=== PATIENT | male | born 1960 | race Caucasian/White ===

== ENCOUNTER 2020-08-06 14:35 | Inpatient (IN) | payer MEDICARE ==
[~2020-08-06] VITALS: Ht 175.3 cm; Wt 71.2 kg
[~2020-08-06 14:35] MED LIST: NEURONTIN300 MG PO; NORCO 5-325 TA1 EACH PO; NORVASC 5 MG TAB5 MG PO; SYNTHROID25 MCG PO; TORADOL 10 MG T10 MG PO
[2020-08-06 16:34] LABS: BUN/CREATININE RATIO 12 (0-10)
[2020-08-06 16:57] LABS: HEMOGLOBIN 14.7 gm/dl (14.0-17.5); RED BLOOD COUNT 4.75 M/UL (4.20-5.50); WHITE BLOOD COUNT 7.9 K/UL (4.5-11.0)
[2020-08-06] MEDS ORDERED: BENADRYL25 MG PO (18:08)
[2020-08-07 04:56] LABS: HEMOGLOBIN 14.8 gm/dl (14.0-17.5); RED BLOOD COUNT 4.6 M/UL (4.20-5.50); WHITE BLOOD COUNT 6.8 K/UL (4.5-11.0)
[2020-08-07 05:13] LABS: BUN/CREATININE RATIO 12 (0-10)
[2020-08-07] MEDS ORDERED: LOPRESSOR 25 MG25 MG PO (11:31)
--- NOTE | 2020-08-07 17:26 | NUR ---
SPOKE WITH IRMA KELLEY NP ABOUT PATIENT'S HEART CATH. HE VERBALIZED THAT IT IS TO TAKE PLACE TOMORROW AT APPROXIMATELY 10 AM.
[2020-08-08 03:43] LABS: HEMOGLOBIN 14.1 gm/dl (14.0-17.5); RED BLOOD COUNT 4.46 M/UL (4.20-5.50); WHITE BLOOD COUNT 9.9 K/UL (4.5-11.0)
--- NOTE | 2020-08-08 10:08 | NUR ---
0950- PATIENT LEFT FLOOR FOR CARDIAC CATH.
[2020-08-08 21:52] LABS: HEMOGLOBIN 13.6 gm/dl (14.0-17.5); RED BLOOD COUNT 4.23 M/UL (4.20-5.50); WHITE BLOOD COUNT 7.5 K/UL (4.5-11.0)
[2020-08-09 03:37] LABS: HEMOGLOBIN 13.4 gm/dl (14.0-17.5); RED BLOOD COUNT 4.2 M/UL (4.20-5.50); WHITE BLOOD COUNT 7.5 K/UL (4.5-11.0)
[2020-08-09 03:50] LABS: BUN/CREATININE RATIO 11 (0-10)
[2020-08-09] MEDS ORDERED: ATORVASTATIN CA20 MG PO (11:28)
[2020-08-09] MEDS ORDERED: BRILINTA 90 MG90 MG PO (11:28)
[2020-08-09] MEDS ORDERED: ASPIRIN EC81 MG PO (11:28)
[2020-08-25] MEDS ORDERED: BRILINTA 90 MG90 MG PO (13:35)
[2020-08-25] MEDS ORDERED: PROTONIX40 MG PO (13:35)
[2020-08-25] MEDS ORDERED: ISOSORBIDE MONO30 MG PO (13:35)
[2020-08-25] MEDS ORDERED: LOPRESSOR 25 MG25 MG PO (13:35)
[2020-08-25] MEDS ORDERED: ALDACTONE 25MG25 MG PO (13:35)
[2020-08-25] MEDS ORDERED: IPRAT-ALBUT 0.5-3 ML NEB (13:35)
== END 2020-08-09 12:30 | disposition home or self-care (01) | DRG 247 ==
LOC: ER1 14:35 → PROG CARE 17:09 → MED SURG 4 17:09 → CDU 17:09 → MED SURG 4 17:09 → PROG CARE 08-08 12:25
PROVIDERS: Internal Medicine Cardiovascular Disease; Preventive Medicine Occupational Medicine; ADMIT Internal Medicine
PROC: B24BZZ4 Ultrasonography of Heart with Aorta, Transesophageal (ICD-10-PCS; 2020-08-07)
PROC: 027034Z Dilation of Coronary Artery, One Artery with Drug-eluting Intraluminal Device, Percutaneous Approach (ICD-10-PCS; principal; 2020-08-08)
PROC: 02703ZZ Dilation of Coronary Artery, One Artery, Percutaneous Approach (ICD-10-PCS; 2020-08-08)
PROC: 4A023N7 Measurement of Cardiac Sampling and Pressure, Left Heart, Percutaneous Approach (ICD-10-PCS; 2020-08-08)
PROC: B2111ZZ Fluoroscopy of Multiple Coronary Arteries using Low Osmolar Contrast (ICD-10-PCS; 2020-08-08)
DX: I25.10 Atherosclerotic heart disease of native coronary artery without angina pectoris (principal); N17.9 Acute kidney failure, unspecified; I65.21 Occlusion and stenosis of right carotid artery; Z20.822 Contact with and (suspected) exposure to COVID-19; I10 Essential (primary) hypertension; E03.9 Hypothyroidism, unspecified; N40.0 Benign prostatic hyperplasia without lower urinary tract symptoms; I35.1 Nonrheumatic aortic (valve) insufficiency; F17.220 Nicotine dependence, chewing tobacco, uncomplicated; E78.5 Hyperlipidemia, unspecified; Z81.1 Family history of alcohol abuse and dependence; Z98.1 Arthrodesis status; Z82.49 Family history of ischemic heart disease and other diseases of the circulatory system; Z83.3 Family history of diabetes mellitus
CPT/HCPCS: ECHO; 36415; 36600; 70450; 70544; 70551; 71045; 78452; 80048; 80053; 80061; 80307; 81001; 82140; 82550; 82553; 82803; 83036; 83605; 83690; 83874; 83880; 84439; 84443; 84484; 85025; 85027; 85379; 85652; 86140; 87086; 92920; 93005; 93017; 93306; 93880; 96372; 99152; 99153; 99285; A9502; C1725; C1769; C1874; C1887; C1894; C9600; G0378; G0480; J0583; J1644; J1650; J2250; J2785; J7030; Q9965; U0002

== ENCOUNTER 2020-08-22 12:10 | Observation (INO) | payer MEDICARE ==
[~2020-08-22] VITALS: Ht 175.3 cm; Wt 84.4 kg
[~2020-08-22 12:10] MED LIST changes: +ASPIRIN EC81 MG PO; +ATORVASTATIN CA20 MG PO; +BENADRYL25 MG PO; +BRILINTA 90 MG90 MG PO; +LOPRESSOR 25 MG25 MG PO
[2020-08-22 12:45] LABS: HEMOGLOBIN 14.8 gm/dl (14.0-17.5); RED BLOOD COUNT 4.54 M/UL (4.20-5.50); WHITE BLOOD COUNT 9.6 K/UL (4.5-11.0)
[2020-08-22 13:14] LABS: BUN/CREATININE RATIO 9 (0-10)
[2020-08-22] MEDS ORDERED: EUTHYROX25 MCG PO (15:33)
[2020-08-23 01:18] LABS: HEMOGLOBIN 12.9 gm/dl (14.0-17.5); RED BLOOD COUNT 4.19 M/UL (4.20-5.50); WHITE BLOOD COUNT 8.5 K/UL (4.5-11.0)
[2020-08-23 01:39] LABS: BUN/CREATININE RATIO 10 (0-10)
[2020-08-24 12:59] LABS: BUN/CREATININE RATIO 10 (0-10)
[2020-08-25 06:01] LABS: HEMOGLOBIN 13.5 gm/dl (14.0-17.5); RED BLOOD COUNT 4.23 M/UL (4.20-5.50); WHITE BLOOD COUNT 8.2 K/UL (4.5-11.0)
[2020-08-25 06:48] LABS: BUN/CREATININE RATIO 11 (0-10)
[2020-08-25] MEDS ORDERED: BRILINTA 90 MG90 MG PO (13:35)
[2020-08-25] MEDS ORDERED: PROTONIX40 MG PO (13:35)
[2020-08-25] MEDS ORDERED: IPRAT-ALBUT 0.5-3 ML NEB (13:35)
[2020-08-25] MEDS ORDERED: ISOSORBIDE MONO30 MG PO (13:35)
[2020-08-25] MEDS ORDERED: LOPRESSOR 25 MG25 MG PO (13:35)
[2020-08-25] MEDS ORDERED: ALDACTONE 25MG25 MG PO (13:35)
--- NOTE | 2020-08-25 14:07 | NUR ---
1400- Spoke with Carlos at Dr. Vu's office concerning event monitor. Carlos stated that he would bring monitor to the respiratory dept so they would have a unit to place on patient.
== END 2020-08-25 15:48 | disposition home or self-care (01) ==
LOC: ER1 12:10 → MED SURG 4 14:20 → CDU 14:20 → MED SURG 4 15:59
PROVIDERS: Emergency Medicine; Physician Assistant; ADMIT Internal Medicine
DX: R07.9 Chest pain, unspecified (principal); I25.10 Atherosclerotic heart disease of native coronary artery without angina pectoris; I47.2 Ventricular tachycardia; I49.3 Ventricular premature depolarization; I10 Essential (primary) hypertension; E78.5 Hyperlipidemia, unspecified; E87.6 Hypokalemia; J44.9 Chronic obstructive pulmonary disease, unspecified; E11.9 Type 2 diabetes mellitus without complications; E03.9 Hypothyroidism, unspecified; F17.220 Nicotine dependence, chewing tobacco, uncomplicated; Z20.822 Contact with and (suspected) exposure to COVID-19; Z95.5 Presence of coronary angioplasty implant and graft; Z79.82 Long term (current) use of aspirin; Z79.899 Other long term (current) drug therapy
CPT/HCPCS: 36415; 71045; 80048; 80053; 82550; 82553; 83735; 83874; 83880; 84439; 84443; 84484; 85025; 85610; 85730; 93005; 93270; 94640; 94664; 94760; 99285; G0378; U0002